=== PATIENT | female | born 1990 | race African-American/Black ===

== ENCOUNTER 2020-03-19 06:48 | Emergency (ER) | payer SELFPAY ==
[2020-03-19] MEDS ORDERED: METOCLOPRAMIDE 10 MG/2mL INJ ONE (07:48)
[2020-03-19] MEDS ORDERED: KETOROLAC 30 MG/ML INJ ONE (07:48)
[2020-03-19] MEDS ORDERED: DIPHENHYDRAMINE 50 MG/ML VIAL ONE (07:48)
[2020-03-19] MEDS ORDERED: NA CHLORIDE 0.9% 1,000 ML ONE (07:49)
--- NOTE | 2020-03-19 08:30 | RAD REPORT ---
EXAM DESCRIPTION: CT - Head Brain Wo Cont - 03/19/2020 8:21 am CLINICAL HISTORY: Headache COMPARISON: None. TECHNIQUE: Computed axial tomography of the head was obtained. IV contrast was not requested. All CT scans are performed using dose optimization technique as appropriate and may include automated exposure control or mA/KV adjustment according to patient size. FINDINGS: An intracranial bleed is not seen . Empty sella turcica is present The ventricles are normal in caliber. No extra-axial fluid collection is noted. Fluid within the sinuses/ mastoids is not seen. IMPRESSION: No acute intracranial abnormality is seen. If patient's symptoms persist MRI of the bra in would be recommended.
[2020-03-19 08:47] LABS: Urine Blood 2+ (NEG); Urine Glucose NEGATIVE (NEG); Urine Protein NEGATIVE (NEG); Urine Specific Gravity 1.025 (1.005-1.030); Urine pH 7.5 (5.0-7.0)
[2020-03-19] MEDS ORDERED: dexAMETHasone 10 MG/ML VIAL ONE (09:13)
--- NOTE | 2020-03-19 09:14 | ER ---
Nurse's Notes [facility] Name: Jose G Walsh Age: 29 yrs Sex: Female : 1990 Arrival Date: 03/19/2020 Time: 06:54 Bed 5 Private MD: Diagnosis: Headache Presentation: 03/19 07:00 Chief complaint: EMS states: patient complaint of migraine started 2 days ago got rr5 better yesterday then it came back last night with shortness of breath. lungs clear. Coronavirus screen: At this time, the client does not indicate any symptoms associated with coronavirus-19. Ebola Screen: Patient negative for fever greater than or equal to 101.5 degrees Fahrenheit, and additional compatible Ebola Virus Disease symptoms Patient denies exposure to infectious person. Patient denies travel to an Ebola-affected area in the 21 days before illness onset. Initial Sepsis Screen: Does the patient meet any 2 criteria? No. Patient's initial sepsis screen is negative. Does the patient have a suspected source of infection? No. Patient's initial sepsis screen is negative. Risk Assessment: Do you want to hurt yourself or someone else? Patient reports no desire to harm self or others. Onset of symptoms was March 17, 2020. Care prior to arrival: Medication(s) given: Tylenol, taken 0000H. 07:00 Method Of Arrival: EMS: [facility] rr5 07:00 Acuity: LAURA 3 rr5 07:00 Note EMS V/S 198/104 HR 106 T 98.0F, O2 sat 100% not taking medication for HTN and rr5 migraine. Triage Assessment: 07:00 Headache History: The patient has had previous headaches and this one is similar to bp previous episodes. General: Appears in no apparent distress. uncomfortable, obese, Behavior is cooperative, appropriate for age, anxious. Pain: Pain currently is 5 out of 10 on a pain scale. Pain began 1 day ago. Also complains of nausea. EENT: No deficits noted. Neuro: Level of Consciousness is awake, alert, obeys commands, Oriented to person, place, time, situation, Appropriate for age. Cardiovascular: No deficits noted. Respiratory: No deficits noted. GI: No signs and/or symptoms were reported involving the gastrointestinal system. : No signs and/or symptoms were reported regarding the genitourinary system. Derm: No deficits noted. Musculoskeletal: No deficits noted. 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 - Social history:: Smoking status: Patient reports the use of cigarette tobacco products, smokes one-half pack cigarettes per day, Patient/guardian denies using alcohol, tobacco products. Screenin:05 Abuse screen: Denies threats or abuse. Denies injuries from another. Nutritional rr5 screening: No deficits noted. Tuberculosis screening: No symptoms or risk factors identified. Fall Risk None identified. Total Olivas Fall Scale indicates No Risk (0-24 pts). Assessment: 07:00 General: SEE TRIAGE NOTE. bp 07:58 Reassessment: IVF INFUSING, VS STABLE ON MONITOR. bp 09:10 Reassessment: PT RETURNED FROM CT. ALL CURRENT ORDERS COMPLETED. bp 09:16 Reassessment: D/C ON HOLD FOR IVF COMPLETION. bp 09:46 Reassessment: PT D/C HOME AMBULATORY, DX WITH MIGRAINE. bp Vital Signs: 07:00 BP 145 / 96; Pulse 64; Resp 19; Temp 98.7; Pulse Ox 100% ; Weight 99.79 kg; Height 5 rr5 ft. 7 in. (170.18 cm); Pain 9/10; 07:56 BP 155 / 86; Pulse 74; Resp 17; Pulse Ox 100% ; bp 09:16 BP 141 / 84; Pulse 58; Resp 16; Pulse Ox 100% ; bp 07:00 Body Mass Index 34.46 (99.79 kg, 170.18 cm) rr5 ED Course: 06:54 Patient arrived in ED. bb 07:00 Arm band placed on right wrist. rr5 07:00 Patient has correct armband on for positive identification. Bed in low position. Call bp light in reach. Side rails up X2. 07:02 Isaac Zamora NP is PHCP. pm1 07:02 Chetan Seay MD is Attending Physician. pm1 07:04 Triage completed. rr5 07:11 Attending Physician role handed off by Chetan Seay MD andreina 07:11 Matteo Crawford MD is Attending Physician. andreina 07:14 Manuel Wong, RN is Primary Nurse. bp 07:50 Inserted saline lock: 20 gauge in right forearm, using aseptic technique. bp 08:22 CT Head Brain wo Cont In Process Unspecified. EDMS 09:46 No provider procedures requiring assistance completed. IV discontinued, intact, bp bleeding controlled, No redness/swelling at site. Pressure dressing applied. Administered Medications: 05:00 Drug: Reglan 10 mg Route: IVP; Site: right forearm; bp 09:10 Follow up: Response: Pain is decreased bp 07:50 Drug: Ketorolac 30 mg Route: IVP; Site: right forearm; bp 09:10 Follow up: Response: Pain is decreased bp 07:50 Drug: diphenhydrAMINE 25 mg Route: IVP; Site: right forearm; bp 09:10 Follow up: Response: Pain is decreased bp 07:50 Drug: NS 0.9% 1000 ml Route: IV; Rate: 1 bolus; Site: right forearm; bp 09:47 Follow up: IV Status: Completed infusion; IV Intake: 1000ml bp 09:15 Drug: Decadron - Dexamethasone 10 mg Route: IVP; Site: right forearm; bp 09:47 Follow up: Response: Pain is decreased bp Intake: 09:47 IV: 1000ml; Total: 1000ml. bp Outcome: 09:13 Discharge ordered by . pm1 09:46 Discharged to home ambulatory. bp 09:46 Condition: stable 09:46 Discharge instructions given to patient, Instructed on discharge instructions, follow up and referral plans. medication usage, Demonstrated understanding of instructions, follow-up care, medications, Prescriptions given X 1. 09:47 Patient left the ED. bp Signatures: Dispatcher [employer] EDVT Matteo Crawford MD MD cha Ballard, Brenda, RN RN bb Isaac Zamora, DENTAL OFFICE RECEPTIONIST DENTAL OFFICE RECEPTIONIST pm1 Manuel Wong, RN RN Alcides Noriega RN RN rr5 Corrections: (The following items were deleted from the chart) 07:17 07:00 Note EMS V/S 198/104 HR 106 T 98.0F, O2 sat 100% rr5 rr5
--- NOTE | 2020-03-19 09:14 | EDPHYS ---
Physician Documentation [facility] Name: Jose G Walsh Age: 29 yrs Sex: Female : 1990 Arrival Date: 03/19/2020 Time: 06:54 Bed 5 Private MD: ED Physician Matteo Crawford HPI: 03/19 07:35 This 29 yrs old Black Female presents to ER via EMS with complaints of Headache > 24hrs pm1 Old. 07:35 The patient complains of pain to the right eye and left eye radiating to back of head. pm1 The patient describes the headache as aching, constant. Onset: The symptoms/episode began/occurred 2 day(s) ago. Associated signs and symptoms: Pertinent positives: Photophobia Pertinent negatives: nausea, paresthesias, vomiting, weakness. Severity of symptoms: in the emergency department the pain is actually worse. Headache History: The patient has had previous headaches and this one is similar to previous episodes, and this one is more severe than previous episodes. the symptoms are aggravated by lights, noise. The patient has experienced similar episodes in the past, a few times. The patient has not recently seen a physician. 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 - Social history:: Smoking status: Patient reports the use of cigarette tobacco products, smokes one-half pack cigarettes per day, Patient/guardian denies using alcohol, tobacco products. ROS: 07:35 Constitutional: Negative for fever, chills, and weight loss, Eyes: Negative for injury, pm1 pain, redness, and discharge, ENT: Negative for injury, pain, and discharge, Neck: Negative for injury, pain, and swelling, Cardiovascular: Negative for chest pain, palpitations, and edema, Respiratory: Negative for shortness of breath, cough, wheezing, and pleuritic chest pain, Abdomen/GI: Negative for abdominal pain, nausea, vomiting, diarrhea, and constipation, Back: Negative for injury and pain, MS/Extremity: Negative for injury and deformity, Skin: Negative for injury, rash, and discoloration. 07:35 Neuro: Positive for headache. Exam: 07:35 Constitutional: This is a well developed, well nourished patient who is awake, alert, pm1 and in no acute distress. Head/Face: Normocephalic, atraumatic. Eyes: Pupils equal round and reactive to light, extra-ocular motions intact. Lids and lashes normal. Conjunctiva and sclera are non-icteric and not injected. Cornea within normal limits. Periorbital areas with no swelling, redness, or edema. ENT: Nares patent. No nasal discharge, no septal abnormalities noted. Tympanic membranes are normal and external auditory canals are clear. Oropharynx with no redness, swelling, or masses, exudates, or evidence of obstruction, uvula midline. Mucous membranes moist. Neck: Trachea midline, no thyromegaly or masses palpated, and no cervical lymphadenopathy. Supple, full range of motion without nuchal rigidity, or vertebral point tenderness. No Meningismus. 07:35 Back: No spinal tenderness. No costovertebral tenderness. Full range of motion. Skin: Warm, dry with normal turgor. Normal color with no rashes, no lesions, and no evidence of cellulitis. MS/ Extremity: Pulses equal, no cyanosis. Neurovascular intact. Full, normal range of motion. 07:35 Cardiovascular: Exam negative for acute changes, Rate: normal, Rhythm: regular, Pulses: no pulse deficits are appreciated. 07:35 Respiratory: Exam negative for acute changes, respiratory distress, shortness of breath. 07:35 Neuro: Exam negative for acute changes, Orientation: is normal, Mentation: is normal, Motor: is normal, moves all fours. Vital Signs: 07:00 BP 145 / 96; Pulse 64; Resp 19; Temp 98.7; Pulse Ox 100% ; Weight 99.79 kg; Height 5 rr5 ft. 7 in. (170.18 cm); Pain 9/10; 07:56 BP 155 / 86; Pulse 74; Resp 17; Pulse Ox 100% ; bp 09:16 BP 141 / 84; Pulse 58; Resp 16; Pulse Ox 100% ; bp 07:00 Body Mass Index 34.46 (99.79 kg, 170.18 cm) rr5 MDM: 07:11 Patient medically screened. [facility] 08:47 Counseling: I had a detailed discussion with the patient and/or guardian regarding: the pm1 historical points, exam findings, and any diagnostic results supporting the discharge/admit diagnosis, radiology results, the need for outpatient follow up, to return to the emergency department if symptoms worsen or persist or if there are any questions or concerns that arise at home. 08:47 ED course: Pain 6/10. Patient would like additional medication for pain if possible. pm1 08:48 Data reviewed: vital signs. Data interpreted: Pulse oximetry: on room air is 100 %. pm1 Interpretation: normal. 03/19 07:37 Order name: Urine Dipstick--Ancillary (enter results); Complete Time: 08:48 mt 03/19 07:37 Order name: Urine --Ancillary (enter results); Complete Time: 08:48 mt 03/19 07:31 Order name: CT Head Brain wo Cont; Complete Time: 08:38 bp 03/19 07:31 Order name: Urine Dipstick-Ancillary (obtain specimen); Complete Time: 07:58 bp 03/19 07:31 Order name: Urine Test (obtain specimen); Complete Time: 07:58 bp Administered Medications: 05:00 Drug: Reglan 10 mg Route: IVP; Site: right forearm; bp 09:10 Follow up: Response: Pain is decreased bp 07:50 Drug: Ketorolac 30 mg Route: IVP; Site: right forearm; bp 09:10 Follow up: Response: Pain is decreased bp 07:50 Drug: diphenhydrAMINE 25 mg Route: IVP; Site: right forearm; bp 09:10 Follow up: Response: Pain is decreased bp 07:50 Drug: NS 0.9% 1000 ml Route: IV; Rate: 1 bolus; Site: right forearm; bp 09:47 Follow up: IV Status: Completed infusion; IV Intake: 1000ml bp 09:15 Drug: Decadron - Dexamethasone 10 mg Route: IVP; Site: right forearm; bp 09:47 Follow up: Response: Pain is decreased bp Disposition: 03/19/20 09:13 Discharged to Home. Impression: Headache. - Condition is Stable. - Discharge Instructions: General Headache Without Cause, Migraine Headache. - Prescriptions for Fiorinal 50- 325-40 mg Oral Capsule - take 1 capsule by ORAL route every 4 hours As needed - not to exceed 6 capsules per day; 20 capsule. - Medication Reconciliation Form, Thank You Letter, Antibiotic Education, Prescription Opioid Use, Work release form form. - Follow up: Emergency Department; When: As needed; Reason: Worsening of condition. Follow up: Private Physician; When: 2 - 3 days; Reason: Recheck today's complaints, Continuance of care, Re-evaluation by your physician. - Problem is new. - Symptoms have improved. Addendum: 03/20/2020 11:58 Co-signature as Attending Physician, Matteo Crawford MD I agree with the assessment and c polk plan of care. Signatures: Dispatcher [employer] EDSD Matteo Crawford MD MD cha Marinas, Patrick, OVERHEAD CRANE TRUCK LOADER OVERHEAD CRANE TRUCK LOADER pm1 Manuel Wong RN RN bp Alcides Antonio RN RN rr5 Corrections: (The following items were deleted from the chart) 03/19 09:47 09:13 03/19/2020 09:13 Discharged to Home. Impression: Headache. Condition is Stable. bp Forms are Medication Reconciliation Form, Thank You Letter, Antibiotic Education, Prescription Opioid Use. Follow up: Emergency Department; When: As needed; Reason: Worsening of condition. Follow up: Private Physician; When: 2 - 3 days; Reason: Recheck today's complaints, Continuance of care, Re-evaluation by your physician. Problem is new. Symptoms have improved. pm1
== END 2020-03-19 09:47 | disposition home or self-care (01) ==
LOC: ER 06:48
DX: R51 Headache (principal); I10 Essential (primary) hypertension; F17.210 Nicotine dependence, cigarettes, uncomplicated
CPT/HCPCS: 70450; 81003; 81025; 96361; 96374; 96375; 99284; J1100; J1200; J2765; J7030

== ENCOUNTER 2020-03-26 19:42 | Emergency (ER) | payer SELFPAY ==
[2020-03-26] MEDS ORDERED: METOCLOPRAMIDE 10 MG/2mL INJ ONE (21:09)
[2020-03-26] MEDS ORDERED: NA CHLORIDE 0.9% 1,000 ML ONE (21:09)
[2020-03-26] MEDS ORDERED: DIPHENHYDRAMINE 50 MG/ML VIAL ONE (21:09)
[2020-03-26 21:17] LABS: Absolute Lymphocytes (CBC) 2.7 K/uL (0.7-4.9); Basophils % 1.1 % (0-1.3); Hematocrit 35.8 % (36.0-45.0); Lymphocytes % 26.6 % (15.3-44.8); MPV 8.4 fL (7.6-11.3); RBC Red Blood Cell Count 4.29 M/uL (3.86-4.86)
[2020-03-26 21:21] LABS: Urine Blood NEGATIVE (NEG); Urine Glucose NEGATIVE (NEG); Urine Protein NEGATIVE (NEG); Urine pH 7.5 (5.0-7.0)
[2020-03-26 21:26] LABS: Protime INR 0.95
[2020-03-26 21:31] LABS: Barbiturates POSITIVE (NEGATIVE); Benzodiazepines NEGATIVE (NEGATIVE); Cocaine NEGATIVE (NEGATIVE); METHAMPHETAM NEGATIVE (NEGATIVE); Methadone NEGATIVE (NEGATIVE); Opiates NEGATIVE (NEGATIVE); Phencyclidine NEGATIVE (NEGATIVE); THC Cannibis NEGATIVE (NEGATIVE)
[2020-03-26 21:32] LABS: ALT/SGPT 19 U/L (12-78); AST/SGOT 17 U/L (15-37); Albumin 3.4 g/dL (3.4-5.0); Alkaline Phosphatase 79 U/L (45-117); BUN Blood Urea Nitrogen 8 mg/dL (7-18); Bicarbonate 28 mmol/L (21-32); Bilirubin Direct < 0.1 mg/dL (0-0.2); Bilirubin Total 0.2 mg/dL (0.2-1.0); Glucose Level 89 mg/dL (74-106); Potassium 3.9 mmol/L (3.5-5.1); Protein, Total 8.2 g/dL (6.4-8.2); Sodium Level 141 mmol/L (136-145)
--- NOTE | 2020-03-27 00:15 | EDPHYS ---
Physician Documentation [facility] Name: Jose G Walsh Age: 29 yrs Sex: Female : 1990 Arrival Date: 03/26/2020 Time: 19:42 Bed 2 Private MD: ED Physician Diego Sanders HPI: 03/26 21:09 This 29 yrs old Black Female presents to ER via Ambulatory with complaints of High mh7 Blood Pressure, Migraine. 21:09 The patient complains of pain to the forehead. The patient describes the headache as mh7 intermittent, throbbing, waxing and waning. 21:10 Onset: The symptoms/episode began/occurred this morning, today. mh7 21:10 Associated signs and symptoms: Pertinent positives: Photophobia Pertinent negatives: mh7 altered mental status, dizziness, fever, malaise, nausea, neck stiffness, paresthesias, rash, sinus congestion, sinus tenderness, vision changes, vision loss, vomiting, weakness, vertigo. Severity of symptoms: At its worst the pain was moderate, earlier today, in the emergency department the pain is unchanged. Headache History: The patient has had previous headaches and this one is similar to previous episodes. The symptoms are alleviated by nothing. the symptoms are aggravated by lights, movement, noise, stress. The patient has experienced similar episodes in the past, multiple times. The patient has been recently seen at the [facility] Emergency Department, last week. Patient reports a history of migraine headaches and hypertension that flared up this morning. She was seen here last week for similar issue and was treated. She denies any chest pain, SOB, neck pain, fever, nausea, vomiting, abdominal pain, numbness/tingling, or weakness. She has been taking medications for blood pressure.. 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 - Social history:: Smoking status: Patient reports the use of cigarette tobacco products, smokes one-half pack cigarettes per day, Patient/guardian denies using alcohol, street drugs. ROS: 21:10 Constitutional: Negative for fever, chills, and weight loss, Eyes: Negative for injury, mh7 pain, redness, and discharge, ENT: Negative for injury, pain, and discharge, Neck: Negative for injury, pain, and swelling, Cardiovascular: Negative for chest pain, palpitations, and edema, Respiratory: Negative for shortness of breath, cough, wheezing, and pleuritic chest pain, Abdomen/GI: Negative for abdominal pain, nausea, vomiting, diarrhea, and constipation, Back: Negative for injury and pain, : Negative for injury, bleeding, discharge, and swelling, MS/Extremity: Negative for injury and deformity, Skin: Negative for injury, rash, and discoloration, Psych: Negative for depression, anxiety, suicide ideation, homicidal ideation, and hallucinations, Allergy/Immunology: Negative for hives, rash, and allergies, Endocrine: Negative for neck swelling, polydipsia, polyuria, polyphagia, and marked weight changes, Hematologic/Lymphatic: Negative for swollen nodes, abnormal bleeding, and unusual bruising. Exam: 21:10 Eyes: Pupils equal round and reactive to light, extra-ocular motions intact. Lids and mh7 lashes normal. Conjunctiva and sclera are non-icteric and not injected. Cornea within normal limits. Periorbital areas with no swelling, redness, or edema. Neck: Trachea midline, no thyromegaly or masses palpated, and no cervical lymphadenopathy. Supple, full range of motion without nuchal rigidity, or vertebral point tenderness. No Meningismus. Chest/axilla: Normal chest wall appearance and motion. Nontender with no deformity. No lesions are appreciated. Cardiovascular: Regular rate and rhythm with a normal S1 and S2. No gallops, murmurs, or rubs. Normal PMI, no JVD. No pulse deficits. Respiratory: Lungs have equal breath sounds bilaterally, clear to auscultation and percussion. No rales, rhonchi or wheezes noted. No increased work of breathing, no retractions or nasal flaring. Abdomen/GI: Soft, non-tender, with normal bowel sounds. No distension or tympany. No guarding or rebound. No evidence of tenderness throughout. Back: No spinal tenderness. No costovertebral tenderness. Full range of motion. Skin: Warm, dry with normal turgor. Normal color with no rashes, no lesions, and no evidence of cellulitis. MS/ Extremity: Pulses equal, no cyanosis. Neurovascular intact. Full, normal range of motion. Neuro: Awake and alert, GCS 15, oriented to person, place, time, and situation. Cranial nerves II-XII grossly intact. Motor strength 5/5 in all extremities. Sensory grossly intact. Cerebellar exam normal. Normal gait. Psych: Awake, alert, with orientation to person, place and time. Behavior, mood, and affect are within normal limits. 21:10 Constitutional: The patient appears in no acute distress, alert, awake, anxious, uncomfortable. 21:10 Head/face: Noted is tenderness, that is moderate, of the forehead. Vital Signs: 19:55 BP 178 / 116; Pulse 65; Resp 16; Temp 98.5(O); Pulse Ox 100% on R/A; Weight 95.25 kg jb4 (R); Height 5 ft. 7 in. (170.18 cm) (R); Pain 8/10; 21:00 BP 166 / 67; Pulse 91; Resp 16; Pulse Ox 100% on R/A; Pain 10/10; mt2 22:00 BP 165 / 82; Pulse 70; Resp 16; Pulse Ox 100% on R/A; Pain 0/10; mt2 23:23 BP 160 / 91; Pulse 63; Resp 16; Pulse Ox 98% on R/A; 4 03/27 00:15 BP 167 / 104; Pulse 94; Resp 16; Pulse Ox 98% on R/A; [facility] 03/26 19:55 Body Mass Index 32.89 (95.25 kg, 170.18 cm) 4 Whipple Coma Score: 00:08 Eye Response: spontaneous(4). Verbal Response: oriented(5). Motor Response: obeys 7 commands(6). Total: 15. MDM: 03/26 20:08 Patient medically screened. [facility] 03/27 00:08 Differential diagnosis: cluster headache, hypertensive headache, intracerebral mh7 hemorrhage, migraine, tension headache. Data reviewed: vital signs, nurses notes, lab test result(s), CBC, electrolytes, urinalysis, urine drug screen, EKG, radiologic studies, CT scan. Data interpreted: Pulse oximetry: on room air is 100 %. Interpretation: normal. Counseling: I had a detailed discussion with the patient and/or guardian regarding: the historical points, exam findings, and any diagnostic results supporting the discharge/admit diagnosis, the presence of at least one elevated blood pressure reading (>120/80) during this emergency department visit, lab results, radiology results, the need for outpatient follow up, to return to the emergency department if symptoms worsen or persist or if there are any questions or concerns that arise at home. Response to treatment: the patient's symptoms have resolved after treatment, the patient's blood pressure is in an acceptable range, mental status has returned to baseline, the patient no longer shows bradycardia, the patient is not short of breath, the patient is not tachycardic, the patient's pain is gone, the patient's temperature has normalized, the patient's condition has returned to base line, patient is well hydrated. 06:38 Response to treatment: the patient is now symptom free. [facility] 03/26 20:11 Order name: CBC with Diff; Complete Time: 21:39 [facility] 03/26 20:11 Order name: Basic Metabolic Panel; Complete Time: 21:39 [facility] 03/26 20:11 Order name: LFT's; Complete Time: 21:39 [facility] 03/26 20:11 Order name: UDS; Complete Time: 21:39 [facility] 03/26 20:11 Order name: Protime (+inr); Complete Time: 21:39 [facility] 03/26 20:11 Order name: Ptt, Activated; Complete Time: 21:39 [facility] 03/26 20:11 Order name: Urine Dipstick-Ancillary (obtain specimen); Complete Time: 23:49 [facility] 03/26 20:11 Order name: Urine Test (obtain specimen); Complete Time: 23:49 [facility] 03/26 20:11 Order name: EKG - Nurse/Tech; Complete Time: 21:05 [facility] 03/26 20:11 Order name: CT Head Brain wo Cont [facility] 03/26 21:15 Order name: Urine Dipstick--Ancillary (enter results); Complete Time: 21:39 ar5 Administered Medications: 03/26 21:05 Drug: Reglan 10 mg Route: IVP; Site: left antecubital; mt2 21:33 Follow up: Response: No adverse reaction; Pain is decreased mt2 21:05 Drug: Benadryl 50 mg Route: IVP; Site: left antecubital; mt2 21:30 Follow up: Response: No adverse reaction; Pain is decreased mt2 21:05 Drug: NS 0.9% 1000 ml Route: IV; Rate: 1000 ml; Site: left antecubital; mt2 Disposition: 03/27 06:38 Co-signature as Attending Physician, Diego Sanders MD. 7 Disposition: 03/27/20 00:14 Discharged to Home. Impression: Headache, Hypertension. - Condition is Stable. - Discharge Instructions: Hypertension, [id number], General Headache Without Cause, Ysta-[id number]. - Prescriptions for Benadryl 25 mg Oral Capsule - take 1 capsule by ORAL route every 6 hours As needed; 20 tablet. Norvasc 5 mg Oral Tablet - take 1 tablet by ORAL route once daily; 15 tablet. - Medication Reconciliation Form, Thank You Letter, Antibiotic Education, Prescription Opioid Use form. - Follow up: Kamini Sanches MD; When: 1 - 2 days; Reason: Worsening of condition, Recheck today's complaints, Continuance of care, Re-evaluation by your physician. Follow up: Cash Marcus MD; When: 1 - 2 days; Reason: Worsening of condition, Recheck today's complaints. - Problem is an acute exacerbation. - Symptoms have improved. Signatures: Dispatcher [employer] EDMS Hasmukh Ann RN RN jb4 Diego Sanders MD MD mh7 Rosey Reyes RN RN mt2 Corrections: (The following items were deleted from the chart) 00:49 00:14 03/27/2020 00:14 Discharged to Home. Impression: Headache; Hypertension. jb4 Condition is Stable. Forms are Medication Reconciliation Form, Thank You Letter, Antibiotic Education, Prescription Opioid Use. Follow up: Kamini Sanches; When: 1 - 2 days; Reason: Worsening of condition, Recheck today's complaints, Continuance of care, Re-evaluation by your physician. Follow up: Cash Marcus; When: 1 - 2 days; Reason: Worsening of condition, Recheck today's complaints. Problem is an acute exacerbation. Symptoms have improved. [facility]
--- NOTE | 2020-03-27 00:15 | ER ---
Nurse's Notes [facility] Name: Jose G Walsh Age: 29 yrs Sex: Female : 1990 Arrival Date: 03/26/2020 Time: 19:42 Bed 2 Private MD: Diagnosis: Headache;Hypertension Presentation: 03/26 19:55 Chief complaint: Patient states: I was here on the for a migraine and high blood jb4 pressure. They told me one could be causing the other and sent me home with Fiorinal. Today at home I checked my blood pressure and it was 190/120 and my migraine is back. Coronavirus screen: Client denies travel out of the [place] in the last 14 days. At this time, the client does not indicate any symptoms associated with coronavirus-19. Ebola Screen: No symptoms or risks identified at this time. Initial Sepsis Screen: Does the patient meet any 2 criteria? No. Patient's initial sepsis screen is negative. Does the patient have a suspected source of infection? No. Patient's initial sepsis screen is negative. Risk Assessment: Do you want to hurt yourself or someone else? Patient reports no desire to harm self or others. Onset of symptoms was March 26, 2020. Transition of care: patient was not received from another setting of care. 19:55 Method Of Arrival: Ambulatory [facility] 19:55 Acuity: LAURA 3 jb4 Triage Assessment: 20:01 Headache History: The patient has had previous headaches and this one is similar to jb4 previous episodes. General: Appears in no apparent distress. uncomfortable, Behavior is calm, cooperative. Pain: Pain began . 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 - Social history:: Smoking status: Patient reports the use of cigarette tobacco products, smokes one-half pack cigarettes per day, Patient/guardian denies using alcohol, street drugs. Screenin:00 Abuse screen: Denies threats or abuse. Nutritional screening: No deficits noted. mt2 Tuberculosis screening: No symptoms or risk factors identified. Fall Risk None identified. Assessment: 20:00 General: Appears in no apparent distress. uncomfortable, Behavior is calm, cooperative, jb4 appropriate for age. Pain: Complains of pain in Migraine Headache Pain does not radiate. Pain currently is 8 out of 10 on a pain scale. Also complains of photophobia. Neuro: Level of Consciousness is awake, alert, obeys commands, Oriented to person, place, time, situation. Cardiovascular: Patient's skin is warm and dry. Respiratory: Airway is patent Respiratory effort is even, unlabored, Respiratory pattern is regular, symmetrical. GI: No signs and/or symptoms were reported involving the gastrointestinal system. : No signs and/or symptoms were reported regarding the genitourinary system. EENT: No signs and/or symptoms were reported regarding the EENT system. Derm: Skin is intact, Skin is dry, Skin is normal, Skin temperature is warm. Musculoskeletal: Circulation, motion, and sensation intact. Range of motion: intact in all extremities. 21:00 Reassessment: Patient and/or family updated on plan of care and expected duration. Pain mt2 level reassessed. Patient is alert, oriented x 3, equal unlabored respirations, skin warm/dry/pink. General: Appears distressed, uncomfortable, Behavior is agitated. Pain: Complains of pain in face Pain currently is 10 out of 10 on a pain scale. 22:00 Reassessment: Patient and/or family updated on plan of care and expected duration. Pain mt2 level reassessed. Patient is alert, oriented x 3, equal unlabored respirations, skin warm/dry/pink. General: Appears comfortable, Behavior is cooperative. Pain: Denies pain. 22:56 Reassessment: Patient appears in no apparent distress at this time. Patient and/or jb4 family updated on plan of care and expected duration. Pain level reassessed. Pt is resting in bed comfortably with eyes closed. No s/s of pain or distress noted. Respirations are even and unlabored. 03/27 00:09 Reassessment: Patient appears in no apparent distress at this time. Patient and/or jb4 family updated on plan of care and expected duration. Pain level reassessed. Patient is alert, oriented x 3, equal unlabored respirations, skin warm/dry/pink. PT is resting in bed with eyes closed, no s/s of pain or distress noted. respirations are even and unlabored. Vital Signs: 03/26 19:55 BP 178 / 116; Pulse 65; Resp 16; Temp 98.5(O); Pulse Ox 100% on R/A; Weight 95.25 kg jb4 (R); Height 5 ft. 7 in. (170.18 cm) (R); Pain 8/10; 21:00 BP 166 / 67; Pulse 91; Resp 16; Pulse Ox 100% on R/A; Pain 10/10; mt2 22:00 BP 165 / 82; Pulse 70; Resp 16; Pulse Ox 100% on R/A; Pain 0/10; mt2 23:23 BP 160 / 91; Pulse 63; Resp 16; Pulse Ox 98% on R/A; jb4 03/27 00:15 BP 167 / 104; Pulse 94; Resp 16; Pulse Ox 98% on R/A; jb4 03/26 19:55 Body Mass Index 32.89 (95.25 kg, 170.18 cm) jb4 Chalmers Coma Score: 00:08 Eye Response: spontaneous(4). Verbal Response: oriented(5). Motor Response: obeys 7 commands(6). Total: 15. ED Course: 03/26 19:42 Patient arrived in ED. cl3 19:46 Hasmukh Ann, RN is Primary Nurse. jb4 19:49 Diego Sanders MD is Attending Physician. mh7 19:57 Triage completed. jb4 19:59 Arm band placed on right wrist. jb4 20:00 Patient has correct armband on for positive identification. Bed in low position. Call mt2 light in reach. Side rails up X 1. 20:00 Inserted saline lock: 18 gauge in left antecubital area, using aseptic technique. Blood mt2 collected. 21:33 CT Head Brain wo Cont In Process Unspecified. EDMS 03/27 00:12 Kamini Sanches MD is Referral Physician. mh7 00:13 Cash Marcus MD is Referral Physician. mh7 00:45 No provider procedures requiring assistance completed. IV discontinued, intact, jb4 bleeding controlled, No redness/swelling at site. Pressure dressing applied. Administered Medications: 03/26 21:05 Drug: Reglan 10 mg Route: IVP; Site: left antecubital; mt2 21:33 Follow up: Response: No adverse reaction; Pain is decreased mt2 21:05 Drug: Benadryl 50 mg Route: IVP; Site: left antecubital; mt2 21:30 Follow up: Response: No adverse reaction; Pain is decreased mt2 21:05 Drug: NS 0.9% 1000 ml Route: IV; Rate: 1000 ml; Site: left antecubital; mt2 Outcome: 03/27 00:14 Discharge ordered by . shun 00:45 Discharged to home ambulatory. jb4 00:45 Condition: stable 00:45 Discharge instructions given to patient, Instructed on discharge instructions, follow up and referral plans. medication usage, Demonstrated understanding of instructions, follow-up care, medications, Prescriptions given X 2. 00:49 Patient left the ED. jb4 Signatures: Dispatcher [employer] EDMS Hasmukh Ann RN RN jb4 Chuy Harry 3 Diego Sanders MD MD mh7 Rosey Reyes RN RN mt2
--- NOTE | 2020-03-27 11:56 | RAD REPORT ---
EXAM DESCRIPTION: CT - Head Brain Wo Cont - 03/26/2020 11:33 pm CLINICAL HISTORY: 29 years Female HEADACHE COMPARISON: None TECHNIQUE: Images were obtained in axial, sagittal, and coronal planes. This exam was performed according to our departmental dose-optimization program which includes use of Automated Exposure Control, adjustment of the mA and/or kV according to patient size and/or use o f iterative reconstruction technique. FINDINGS: Ventricular system appears normal. No abnormal areas of increased attenuation seen. No extra-axial fluid collections noted. No evidence for skull fracture. Symmetric aeration mastoid air cells bilaterally. Unremarkable parana ruth sinuses. IMPRESSION: No acute intracranial abnormality. No evidence for hemorrhage, mass lesion, or large acu te infarction. Electronically signed by: Ifeoma Edwards MD 03/26/2020 9:59 PM CDT Due to temporary technical issues with the PACS/Fluency reporting system, reports are being signed by the in house radiologist without review as a courtesy to ensure prompt reporting. The interpreting r adiologist is fully responsible for the content of the report.
[2020-03-30 00:59] VITALS: TEMP 98.5; O2SAT 100
[2020-03-30 01:02] VITALS: BP 166/67
== END 2020-03-27 00:49 | disposition home or self-care (01) ==
LOC: ER 19:42
DX: I10 Essential (primary) hypertension (principal); F17.210 Nicotine dependence, cigarettes, uncomplicated
CPT/HCPCS: 36415; 70450; 80048; 80076; 80307; 81003; 85025; 85610; 85730; 93005; 96374; 96375; 99284; J1200; J2765; J7030

== ENCOUNTER 2020-10-15 04:44 | Emergency (ER) | payer SELFPAY ==
[2020-10-15] MEDS ORDERED: MORPHINE 4 MG/ML SYR ONE (06:01)
[2020-10-15] MEDS ORDERED: ONDANSETRON 4 MG/2 ML VIAL ONE (06:01)
[2020-10-15] MEDS ORDERED: NA CHLORIDE 0.9% 1,000 ML ONE (06:02)
[2020-10-15] MEDS ORDERED: FAMOTIDINE 20 MG/2 ML VIAL IV ONE (06:02)
[2020-10-15 06:12] LABS: Absolute Lymphocytes (CBC) 1.4 K/uL (0.7-4.9); Basophils % 0.8 % (0-1.3); Hematocrit 34.4 % (36.0-45.0); Lymphocytes % 17.4 % (15.3-44.8); MPV 7.8 fL (7.6-11.3); RBC Red Blood Cell Count 4.17 M/uL (3.86-4.86)
[2020-10-15 07:00] LABS: ALT/SGPT 19 U/L (12-78); AST/SGOT 18 U/L (15-37); Albumin 3.4 g/dL (3.4-5.0); Alkaline Phosphatase 73 U/L (45-117); BUN Blood Urea Nitrogen 7 mg/dL (7-18); Bicarbonate 27 mmol/L (21-32); Bilirubin Direct < 0.1 mg/dL (0-0.2); Bilirubin Total 0.3 mg/dL (0.2-1.0); Glucose Level 103 mg/dL (74-106); Lipase 82 U/L (73-393); Potassium 3.8 mmol/L (3.5-5.1); Protein, Total 7.9 g/dL (6.4-8.2); Sodium Level 138 mmol/L (136-145)
[2020-10-15 07:03] LABS: Urine Blood NEGATIVE (NEG); Urine Glucose NEGATIVE (NEG); Urine Protein NEGATIVE (NEG); Urine Specific Gravity >1.030 (1.005-1.030); Urine pH 7.5 (5.0-7.0)
--- NOTE | 2020-10-15 08:06 | RAD REPORT ---
EXAM DESCRIPTION: CT - Abdomen Pelvis W Contrast - 10/15/2020 7:51 am CLINICAL HISTORY: Abdominal pain COMPARISON: none. TECHNIQUE: Computed axial tomography of the abdomen pelvis was obtained. 100 cc Isovue-300 was admin istered intravenously. Oral contrast was not requested which limits evaluation of bowel. All CT scans are performed using dose optimization technique as appropriate and may include automated exposure control or mA/KV adjustment according to patient size. FINDINGS: The liver, spleen, pancreas, adrenal and kidneys appear unremarkable. There is no evidence of diverticulitis. Normal appendix. Small umbilical hernia. Diastases of the rectus abdominal muscle sheath 5.5 centimeters. Tiny ventral hernia above the level of the umbilicus contains fat Small gallstones gallbladder wall does not appear thickened IMPRESSION: Cholelithiasis.
--- NOTE | 2020-10-15 08:31 | EDPHYS ---
Physician Documentation [facility] Name: Jose G Walsh Age: 29 yrs Sex: Female : 1990 Arrival Date: 10/15/2020 Time: 04:51 Bed 13 Private MD: ED Physician Kamini Mcgowan HPI: 10/15 05:55 This 29 yrs old Black Female presents to ER via Ambulatory with complaints of General mh7 Weakness, Vomiting, Abdominal Pain. 05:55 The patient presents to the emergency department with nausea, that is moderate, mh7 vomiting, that is intermittent, diarrhea, that is intermittent, abdominal pain, of the epigastric area, described as intermittent, vague,\E\ waxing and waning, and does not radiate. Onset: The symptoms/episode began/occurred today, at 00:00. Possible causes: bad food exposure, possibly bad home food. The symptoms are aggravated by nothing. The symptoms are alleviated by nothing. Associated signs and symptoms: Pertinent positives: abdominal pain, diarrhea, fever, nausea, vomiting, Pertinent negatives: anorexia, belching, constipation, dysuria, flatulence, GI bleeding, hematuria, vaginal discharge. Severity of symptoms: At their worst the symptoms were moderate today, in the emergency department the symptoms are unchanged. States that she received her first COVID vaccination yesterday morning.. 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 - Social history:: Smoking status: Patient reports the use of cigarette tobacco products, smokes one-half pack cigarettes per day. ROS: 05:55 Eyes: Negative for injury, pain, redness, and discharge, ENT: Negative for injury, mh7 pain, and discharge, Neck: Negative for injury, pain, and swelling, Cardiovascular: Negative for chest pain, palpitations, and edema, Respiratory: Negative for shortness of breath, cough, wheezing, and pleuritic chest pain, Back: Negative for injury and pain, : Negative for injury, bleeding, discharge, and swelling, MS/Extremity: Negative for injury and deformity, Skin: Negative for injury, rash, and discoloration, Neuro: Negative for headache, weakness, numbness, tingling, and seizure, Psych: Negative for depression, anxiety, suicide ideation, homicidal ideation, and hallucinations, Allergy/Immunology: Negative for hives, rash, and allergies, Endocrine: Negative for neck swelling, polydipsia, polyuria, polyphagia, and marked weight changes, Hematologic/Lymphatic: Negative for swollen nodes, abnormal bleeding, and unusual bruising. Exam: 05:55 Head/Face: Normocephalic, atraumatic. Eyes: Pupils equal round and reactive to light, mh7 extra-ocular motions intact. Lids and lashes normal. Conjunctiva and sclera are non-icteric and not injected. Cornea within normal limits. Periorbital areas with no swelling, redness, or edema. Neck: Trachea midline, no thyromegaly or masses palpated, and no cervical lymphadenopathy. Supple, full range of motion without nuchal rigidity, or vertebral point tenderness. No Meningismus. Chest/axilla: Normal chest wall appearance and motion. Nontender with no deformity. No lesions are appreciated. Cardiovascular: Regular rate and rhythm with a normal S1 and S2. No gallops, murmurs, or rubs. Normal PMI, no JVD. No pulse deficits. Respiratory: Lungs have equal breath sounds bilaterally, clear to auscultation and percussion. No rales, rhonchi or wheezes noted. No increased work of breathing, no retractions or nasal flaring. 05:55 Back: No spinal tenderness. No costovertebral tenderness. Full range of motion. Skin: Warm, dry with normal turgor. Normal color with no rashes, no lesions, and no evidence of cellulitis. MS/ Extremity: Pulses equal, no cyanosis. Neurovascular intact. Full, normal range of motion. Neuro: Awake and alert, GCS 15, oriented to person, place, time, and situation. Cranial nerves II-XII grossly intact. Motor strength 5/5 in all extremities. Sensory grossly intact. Cerebellar exam normal. Normal gait. 05:55 Constitutional: The patient appears in no acute distress, alert, awake, uncomfortable. 05:55 Abdomen/GI: Inspection: obese Bowel sounds: normal, in all quadrants, Palpation: moderate abdominal tenderness, in the epigastric area, right upper quadrant and left upper quadrant, mass, is not appreciated, rebound tenderness, is not appreciated, voluntary guarding, is not appreciated, involuntary guarding, is not appreciated, no appreciated organomegaly, Rectal exam: the exam is deferred, because of patient request, Indicators: McBurney's point is not tender, Kirkpatrick's sign is negative, Rovsing's sign is negative, Obturator sign is negative, Psoas sign is negative, Liver: no appreciated palpable abnormalities, Hernia: not appreciated. Vital Signs: 05:07 BP 154 / 91; Pulse 71; Resp 18; Temp 98.3; Pulse Ox 99% on R/A; Weight 95.25 kg; Height em 5 ft. 7 in. (170.18 cm); Pain 8/10; 06:15 BP 148 / 83; Pulse 62; Resp 18; Pulse Ox 100% on R/A; fu 06:53 BP 144 / 90; Pulse 64; Resp 18; Pulse Ox 100% ; Pain 0/10; fu 08:00 BP 149 / 99; Pulse 68; Resp 17; Pulse Ox 99% ; rb3 09:00 BP 145 / 84; Pulse 64; Resp 18; Pulse Ox 99% ; rb3 05:07 Body Mass Index 32.89 (95.25 kg, 170.18 cm) em MDM: 08:28 Differential diagnosis: gastritis, pancreatitis, viral gastroenteritis, ma2 gastroenteritis. Data reviewed: vital signs, nurses notes, EMS record. Counseling: I had a detailed discussion with the patient and/or guardian regarding: the historical points, exam findings, and any diagnostic results supporting the discharge/admit diagnosis, the presence of at least one elevated blood pressure reading (>120/80) during this emergency department visit, the need for outpatient follow up. Response to treatment: the patient's symptoms have markedly improved after treatment. 08:30 Patient medically screened. ma2 10/15 05:30 Order name: Basic Metabolic Panel; Complete Time: 07:41 10/15 05:30 Order name: CBC with Diff; Complete Time: 06:31 10/15 05:30 Order name: Hepatic Function; Complete Time: 07:41 10/15 05:30 Order name: Lipase; Complete Time: 07:41 10/15 05:44 Order name: Urine Dipstick--Ancillary (enter results) tt3 10/15 05:44 Order name: Urine --Ancillary (enter results) tt3 10/15 05:30 Order name: IV Saline Lock; Complete Time: 06:18 7 10/15 05:45 Order name: Urine Dipstick-Ancillary; Complete Time: 07:41 EDMS 10/15 05:45 Order name: Urine --Ancillary; Complete Time: 07:41 EDWA 10/15 06:46 Order name: CT Abd/Pelvis - IV Contrast Only; Complete Time: 08:09 7 10/15 05:30 Order name: Labs collected and sent; Complete Time: 06:18 7 10/15 05:30 Order name: Urine Dipstick-Ancillary (obtain specimen); Complete Time: 05:42 mh7 10/15 05:30 Order name: Urine Test (obtain specimen); Complete Time: 05:42 mh7 Administered Medications: 06:10 Drug: NS 0.9% 1000 ml Route: IV; Rate: 1000 ml; Site: left antecubital; fu 06:15 Drug: Pepcid 20 mg Route: IVP; Site: left antecubital; fu 06:55 Follow up: Response: No adverse reaction fu 06:17 Drug: Zofran (Ondansetron) 4 mg Route: IVP; Site: left antecubital; fu 06:55 Follow up: Response: No adverse reaction fu 06:18 Drug: morphine 4 mg Route: IVP; Site: left antecubital; fu 06:55 Follow up: Response: Pain is decreased fu Disposition: 10/15/20 08:30 Discharged to Home. Impression: Calculus of gallbladder without cholecystitis. - Condition is Stable. - Discharge Instructions: Cholelithiasis, Form - Excuse from Work, School, or Physical Activity. - Prescriptions for Zofran 4 mg Oral Tablet - take 1 tablet by ORAL route every 12 hours As needed; 20 tablet. Diclofenac Sodium 75 mg Oral Tablet Sustained Release - take 1 tablet by ORAL route 2 times per day; 30 tablet. - Medication Reconciliation Form, Thank You Letter, Antibiotic Education, Prescription Opioid Use, Work release form form. - Follow up: Isidro Siddiqui MD; When: Tomorrow; Reason: Continuance of care. Signatures: Dispatcher [employer] Dom George, RN RN Carlos Eduardo Flores RN Kamini Lloyd MD MD ma2 Diego Sanders MD MD 7 Gretchen Potts, RN RN rb3 Corrections: (The following items were deleted from the chart) 09:11 08:30 10/15/2020 08:30 Discharged to Home. Impression: Calculus of gallbladder without rb3 cholecystitis. Condition is Stable. Forms are Medication Reconciliation Form, Thank You Letter, Antibiotic Education, Prescription Opioid Use. Follow up: Dr. Isidro Siddiqui; When: Tomorrow; Reason: Continuance of care. ma2
--- NOTE | 2020-10-15 08:31 | ER ---
Nurse's Notes [facility] Name: Jose G Walsh Age: 29 yrs Sex: Female : 1990 Arrival Date: 10/15/2020 Time: 04:51 Bed 13 Private MD: Diagnosis: Calculus of gallbladder without cholecystitis Presentation: 10/15 05:07 Chief complaint: Patient states: had her first covid vaccine (Pfizer) yesterday, this em morning woke up with N/V/D, headache, fever and body aches, denies abdomen pain. Coronavirus screen: Client denies travel out of the [place] in the last 14 days. Client presents with at least one sign or symptom that may indicate coronavirus-19. Standard/surgical mask placed on the client. Provider contacted for isolation considerations. Ebola Screen: Patient negative for fever greater than or equal to 101.5 degrees Fahrenheit, and additional compatible Ebola Virus Disease symptoms Patient denies exposure to infectious person. Patient denies travel to an Ebola-affected area in the 21 days before illness onset. No symptoms or risks identified at this time. Initial Sepsis Screen: Does the patient meet any 2 criteria? No. Patient's initial sepsis screen is negative. Does the patient have a suspected source of infection? No. Patient's initial sepsis screen is negative. Risk Assessment: Do you want to hurt yourself or someone else? Patient reports no desire to harm self or others. Onset of symptoms was October 15, 2020. 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 - Social history:: Smoking status: Patient reports the use of cigarette tobacco products, smokes one-half pack cigarettes per day. Screenin:19 Abuse screen: Denies threats or abuse. Nutritional screening: No deficits noted. fu Tuberculosis screening: No symptoms or risk factors identified. Fall Risk None identified. Assessment: 05:24 Pain: Complains of pain in body aches. Neuro: Level of Consciousness is awake, alert, fu obeys commands, Oriented to person, place, time, situation, Moves all extremities. Gait is steady, Speech is normal, Facial symmetry appears normal. 05:32 Respiratory: Respiratory effort is even, unlabored, Respiratory pattern is regular. GI: fu Abdomen is obese, Reports diarrhea, nausea, vomiting. 06:23 : Denies burning with urination, pain. Derm: Skin is intact, Skin is dry. fu 07:00 General: Appears in no apparent distress. comfortable, Behavior is calm, cooperative. rb3 Neuro: Level of Consciousness is awake, alert, obeys commands, Oriented to person, place, time, situation. Respiratory: Airway is patent Respiratory effort is even, unlabored, Respiratory pattern is regular, symmetrical. 07:34 Reassessment: Pt. went to CT. rb3 08:00 Reassessment: Patient appears in no apparent distress at this time. Patient and/or rb3 family updated on plan of care and expected duration. Pain level reassessed. Patient is alert, oriented x 3, equal unlabored respirations, skin warm/dry/pink. 09:00 Reassessment: Patient appears in no apparent distress at this time. No changes from rb3 previously documented assessment. Vital Signs: 05:07 BP 154 / 91; Pulse 71; Resp 18; Temp 98.3; Pulse Ox 99% on R/A; Weight 95.25 kg; Height em 5 ft. 7 in. (170.18 cm); Pain 8/10; 06:15 BP 148 / 83; Pulse 62; Resp 18; Pulse Ox 100% on R/A; fu 06:53 BP 144 / 90; Pulse 64; Resp 18; Pulse Ox 100% ; Pain 0/10; fu 08:00 BP 149 / 99; Pulse 68; Resp 17; Pulse Ox 99% ; rb3 09:00 BP 145 / 84; Pulse 64; Resp 18; Pulse Ox 99% ; rb3 05:07 Body Mass Index 32.89 (95.25 kg, 170.18 cm) em ED Course: 04:51 Patient arrived in ED. am4 04:55 Carlos Eduardo Schwartz RN is Primary Nurse. fu 04:59 Diego Sanders MD is Attending Physician. 7 05:11 Triage completed. em 05:12 Arm band placed on. em 06:05 Initial lab(s) drawn, by me, sent to lab. Inserted saline lock: 22 gauge in left em antecubital area, using aseptic technique. Blood collected. 06:19 Patient has correct armband on for positive identification. Bed in low position. Call fu light in reach. Side rails up X2. 06:19 Pulse ox on. NIBP on. fu 06:24 Urine --Ancillary (enter results) Sent. fu 06:24 Urine Dipstick--Ancillary (enter results) Sent. fu 07:51 CT Abd/Pelvis - IV Contrast Only In Process Unspecified. EDMS 08:12 Attending Physician role handed off by Diego Sanders MD ma2 08:12 Kamini Mcgowan MD is Attending Physician. ma2 08:29 Isidro Siddiqui MD is Referral Physician. ma2 08:58 IV discontinued, Pressure dressing applied. mh5 09:10 No provider procedures requiring assistance completed. rb3 09:10 IV discontinued, intact, bleeding controlled, No redness/swelling at site. Pressure rb3 dressing applied. Administered Medications: 06:10 Drug: NS 0.9% 1000 ml Route: IV; Rate: 1000 ml; Site: left antecubital; fu 06:15 Drug: Pepcid 20 mg Route: IVP; Site: left antecubital; fu 06:55 Follow up: Response: No adverse reaction fu 06:17 Drug: Zofran (Ondansetron) 4 mg Route: IVP; Site: left antecubital; fu 06:55 Follow up: Response: No adverse reaction fu 06:18 Drug: morphine 4 mg Route: IVP; Site: left antecubital; fu 06:55 Follow up: Response: Pain is decreased fu Outcome: 08:30 Discharge ordered by . ma2 09:10 Discharged to home ambulatory. rb3 09:10 Condition: stable 09:10 Discharge instructions given to patient, Instructed on discharge instructions, follow up and referral plans. medication usage, Demonstrated understanding of instructions, follow-up care, medications, Prescriptions given X 2. 09:11 Patient left the ED. rb3 Signatures: Dispatcher [employer] Dom George RN RN em Martinez, Maria 5 Carlos Eduardo Schwartz RN RN Kamini Mcgowan MD MD ma2 Diego Sanders MD MD 7 Gretchen Potts RN RN 3 Raysa Nino am4 Corrections: (The following items were deleted from the chart) 05:32 05:23 General: Appears uncomfortable, Reports fever for 0-12 hours, fu fu 05:32 05:23 Pain: fu fu 05:33 05:24 General: Reports fever for 0-12 hours, fu fu 06:53 01:15 BP 148 / 83; Pulse 62bpm; Resp 18bpm; Pulse Ox 100% RA; fu fu
[2020-10-15 09:16] VITALS: TEMP 98.3
[2020-10-15 09:19] VITALS: O2SAT 99
[2020-10-15 09:21] VITALS: BP 145/84
== END 2020-10-15 09:11 | disposition home or self-care (01) ==
LOC: ER 04:44
DX: K80.20 Calculus of gallbladder without cholecystitis without obstruction (principal); I10 Essential (primary) hypertension; F17.210 Nicotine dependence, cigarettes, uncomplicated
CPT/HCPCS: 36415; 74177; 80048; 80076; 81003; 81025; 83690; 85025; 96374; 96375; 99284; J2405; J7030; Q9967

== ENCOUNTER 2020-10-25 06:24 | Emergency (ER) | payer SELFPAY ==
--- NOTE | 2020-10-25 07:06 | ER ---
Nurse's Notes [facility] Name: Jose G Walsh Age: 29 yrs Sex: Female : 1990 Arrival Date: 10/25/2020 Time: 07:01 Bed Waiting Private MD: Diagnosis: Assessment: 10/25 07:03 Reassessment: Pt left for unknown reason. Unable to locate patient. ED Course: 07:01 Patient arrived in ED. ag3 07:03 Patient did not have IV access during this emergency room visit. Administered Medications: No medications were administered Outcome: 07:03 Eloped from waiting room. ss 07:03 unknown 07:06 Patient left the ED. Signatures: Tana Dye RN RN Mickie [facility]
== END 2020-10-25 07:06 | disposition left against medical advice (07) ==
LOC: ER 06:24
DX: Z02.9 Encounter for administrative examinations, unspecified (principal)